=== PATIENT | female | born 1950 | race Caucasian/White ===

== ENCOUNTER 2017-12-14 06:32 | Outpatient (CLI) | payer OTHER | END 2017-12-14 06:44 | disposition home or self-care (01) | LOC: LAB 06:32 | DX: D70.2 Other drug-induced agranulocytosis (principal); C50.412 Malignant neoplasm of upper-outer quadrant of left female breast; D72.818 Other decreased white blood cell count; R97.0 Elevated carcinoembryonic antigen [CEA]; Z85.3 Personal history of malignant neoplasm of breast; D51.1 Vitamin B12 deficiency anemia due to selective vitamin B12 malabsorption with proteinuria; D51.3 Other dietary vitamin B12 deficiency anemia; M80.022S Age-related osteoporosis with current pathological fracture, left humerus, sequela; D69.49 Other primary thrombocytopenia; E78.5 Hyperlipidemia, unspecified; I10 Essential (primary) hypertension; E03.8 Other specified hypothyroidism; E08.65 Diabetes mellitus due to underlying condition with hyperglycemia; E78.4 Other hyperlipidemia ==